=== PATIENT | male | born 1965 | race Caucasian/White ===

== ENCOUNTER → 2018-04-22 08:30 | Outpatient (CLI) | payer BC, SELFPAY ==
--- NOTE | 2018-04-22 | MASS_PTH ---
PATIENT: JESSICA ROCHE LOC: [facility] U#:[id number] AGE/SX: 60/M ROOM: RE04/22/[address]: Dr. Corwin Cantu MD : 1965 BED: DIS: SPEC #: [id number] RECD: 04/22/18 13:52 STATUS: SHAKEEL MIKHAIL #: [id number] VERONICA: 04/22/18 00:[address]: Corwin Cantu DEPT: SURGICAL PATHOLOGY RECD BY: Brad Bush Tissues: Axilla, NOS Procedures: Surgery Specimen Level III HEADER OPERATION: Excision left axilla mass PRE-OP DIAGNOSIS: Left axilla mass TISSUE SUBMITTED: Left axilla tissue MICROSCOPIC DIAGNOSIS Left axilla tissue, biopsy: Mature adipose tissue, consistent with lipoma. NILAM:hannah 04/23/18 MICROSCOPIC DESCRIPTION Slides are reviewed. GROSS DESCRIPTION Received in fixative is one container labeled with the patient's name and designated left axilla. The specimen consists of an irregular piece of adipose tissue measuring 5.5 x 5 x 2 cm. The external surface is inked. Sections reveal yellow adipose cut surfaces without areas of hemorrhage, necrosis or cystic degeneration. Service Loss Control Consultant sections are submitted in two cassettes. / SJ:hannah 04/22/18 TC:1 CPT: 17261
== END ==
PROVIDERS: Referring Provider Surgery; Visit Provider Surgery
DX: R22.32 Localized swelling, mass and lump, left upper limb (principal)
CPT/HCPCS: 88304; 88305

== ENCOUNTER 2018-05-21 14:30 | Outpatient (RCR) | payer BC, SELFPAY ==
--- NOTE | 2018-06-21 09:03 | HP.OTEVAL_ITS ---
Patient's Visit Information JESSICA ROCHE is a 53 year old M, referred to Occupational Therapy by Corwin Cantu MD, with a diagnosis of lymph vessel. Date of Evaluation: 05/17/18 Occupational Therapist: Rosana Rivera, CECILIA/Jr, CHT - Subjective Subjective: This 53 year old male was seen for inital OT visit with dx of seroma. Pt states on 2017 pt underwent removal of lipoma in office. pt returned to office an . drained seroma and stitches were removed. pt returned to office on May.06 and had more fluid removed 65cc. 2017 pt returned and hand 85cc of fluid removed and drain placed. pt states he contiues to drain fluid. pt is anxious to get fluid to resolve. - ROM Shoulder: right WNL left WNL - Lymphedema (Circumferential Measure) MCP: right 23cm left 24cm Wrist: right 17.5cm left 17.8cm Lower forearm: right 21cm left 21cm Largest forearm: right 30cm left 30 cm Elbow: right 29.5cm left 30cm Largest humerus: right 33cm left 33.5cm Axcillary: right 36cm left 35cm Upper Exremity Comments: Pt arrives with jasen wrap from acillary to elbow. - Sensation Sensation Comments: pt reports at times when he grabs his left forearm he gets pins and needle sensation in his left forearm and hand. - Goals Demonstrate adequate knowledge of self-massage by 2nd week: Yes Demonstrate adequate knowledge skin care/prec by 2nd week: Yes Demonstrate adequate knowledge therapeutic exercises by d/c: Yes Select approp compression garment w/donning/care/wear by d/c: Yes - Rehabilitation General Assessment: pt attends session with drain in left axillary. Pt demo scar tissue at sx site. pt demo need for skilled OT services 1-2x week for 3weeks to ed. pt in self Manual lymph drainage (SMLD). Today therapist ed. pt on lymph drainage, and ed. pt on SMLD. pt was able to demo dwight. well. pt ed. to write down fluid from drain daily, skin care and scar mtg. Therapist will work associated lymph system to pull fulid from left axillary to the right axillary, neck and toracic. Rehabilitation Potential: Questionable - Anticipated Interventions Anticipated Interventions: A/AAROM/PROM, Scar Care, Education re Diagnosis, Manual Lymph Drainage, Education re Self-Bandaging Techniques, Education re Self Massage Techniques - Visit Plan Frequency: 1-2x /Week Duration: 3 Weeks TEXT: Thank you for the opportunity to evaluate your patient. For Medicare and Medicare HMO plans, please review the plan of care and approve it. It will need to be FAXED BACK to us at [phone] for Medicare purposes. Please let me know if there are questions or concerns regarding this plan of care. Physician Signature: Da te:
--- NOTE | 2018-06-21 10:26 | HP.OTDCNRP_ITS ---
HP - Discharge Summary - Patient Information JESSICA ROCHE was seen in my office for initial evaluation on 05/17/18. The following Plan of Care was established for this patient: Initial Frequency: 1-2x /Week Initial Duration: 3 Weeks Plan: pt to call and let therapist know if he has any increase in swelling - Anticipated Interventions Anticipated Interventions: A/AAROM/PROM, Scar Care, Education re Diagnosis, Manu al Lymph Drainage, Education re Self-Bandaging Techniques, Education re Self Massage Techniques This patient was last seen in our office 05/21/18. Pertinent comments regarding their Occupational therapy will appear below: Client seen for two visits- therapy ed. on self manual lymph drainage. Client demo understanding of lymph system and ROM ex. At last visit no noted edema n oted- client has not returned and due to timelapse in therapy services is D/C at this time. At this point I will be discontinuing this patient from occupational therapy. I would be happy to see this patient again in the future if found appropriate by the physician. Thank you! Rosana Rivera, OTR/L, CHT
== END 2018-05-21 19:00 | disposition home or self-care (01) ==
LOC: OT 14:30
PROVIDERS: Referring Provider Surgery; Visit Provider Surgery
DX: I89.8 Other specified noninfective disorders of lymphatic vessels and lymph nodes (principal)
CPT/HCPCS: 97110; 97140; 97166